=== PATIENT | female | born 1995 | race Caucasian/White ===

== ENCOUNTER 2022-08-05 09:08 | Outpatient (RCR) | payer BC, SELFPAY ==
[2022-08-06] MEDS: RHO(D) IMMUNE GLOBULIN 300 MCG/2 ML SYRINGE IM (17:41)
== END 2022-11-03 23:59 | disposition home or self-care (01) ==
LOC: ANHLAB 09:08
PROVIDERS: PCP Family Medicine; Visit Provider Obstetrics & Gynecology
DX: Z29.13 Encounter for prophylactic Rho(D) immune globulin (principal); O36.0190 Maternal care for anti-D [Rh] antibodies, unspecified trimester, not applicable or unspecified; Z3A.00 Weeks of gestation of pregnancy not specified
CPT/HCPCS: 36415; 85461; 86850; 86900; 86901; 90384; 96372; J2790

== ENCOUNTER 2022-10-17 07:26 | Inpatient (IN) | payer BC, SELFPAY ==
[2022-10-17] VITALS (179 sets, daily range): BP systolic 101–142; BP diastolic 55–90; PULSE 58–129; TEMP 36.6–36.9; O2SAT 83–100; BMI 32.8
--- NOTE | 2022-10-17 11:38 | LDADM ---
This patient, Vanita Tesfaye, was admitted to Labor/Delivery/Recovery 107 on 10/17/22 at 07:26. Plans for labor, pain management and were discussed with patient. Patient/family oriented to hospital policies and general routines including ID bracelet, bed and alarms, visiting hours, pain management, procedures, bathroom and other care routines, personal items, smoking policy, room service/diet and guest tray routines, security routines, and visiting hours. Patient/Family are encouraged to report perceived risks to care and to ask questions if they do not understand what they are told or what they should do. See OBIX for further documentation.
[2022-10-17 11:42] LABS: Basophils Percent Auto 0.3 % (0.2-1.2); Eosinophils Percent Auto 0.1 % (0-4.4); Hematocrit 37.8 % (37.0-47.0); Hemoglobin 12.6 g/dL (12.0-15.0); Immature Granulocyte Absolute 0.05 K/mm3 (0.00-0.031); Immature Granulocyte Percent A 0.4 % (0-0.5); Immature Platelet Fraction Pct 27.7 % (0.9-11.2); Lymphocytes Absolute Auto 1.17 K/mm3 (0.9-3.2); Lymphocytes Percent Auto 9.1 % (18.3-44.2); Mean Corpuscular HGB Conc 33.3 g/dl (32-36); Mean Corpuscular Hemoglobin 31.3 pg (26-34); Monocytes Absolute Auto 0.6 K/mm3 (0.1-0.6); Monocytes Percent Auto 4.4 % (2.6-8.5); Neutrophils Percent Auto 85.7 % (45.5-73.1); Platelet Count Result 120 k/mm3 (150-375); Red Blood Count 4.02 M/mm3 (4.2-5.4); White Blood Count 12.8 K/mm3 (4.5-10.0)
--- NOTE | 2022-10-17 12:08 | WPDOBADMIT ---
Obstetrics - Admit Note Admission Note: record reviewed. Additions to the history and/or subsequent changes in the physical findings follow. 27 y/o at 39 4/7 weeks here with contractions. Cervix has changed from 3 to 4 cm, labor has been diagnosed. GBS neg. AVSS NST reactove TOCO: contractions every 3- 4 min ABD soft nontender, gravid, vertex EXT nontender Cervix 4/50/-2. AROM with clear fluid. Vertex. A: IUP at term with labor. P: Anticipate .
--- NOTE | 2022-10-17 12:12 | WPDANESEPP ---
Anes - Eval Pre Procedure Procedure: labor pain management Date/Time: 10/17/22 12:12 Surgeon: Dr. Kelsey Preop Diagnosis: pain during labor Pre Op Diagnosis: contractions Patient Data Age: 27 Gender: F Height: 1.6 m Weight: 84 kg Last Vital Signs Pulse 79 10/17/22 11:31 BP 118/76 10/17/22 11:31 O2 Del Method Room Air 10/17/22 11:38 Allergies Allergy/AdvReac Type Severity Reaction Status Date / Time No Known Allergies Allergy Verified 09/20/22 12:32 Home Medications Medication Instructions Recorded Confirmed Type Flonase 1 puff EACH NARE DAILY 09/20/22 09/20/22 History loratadine 10 mg tablet (Claritin) 10 mg PO DAILY 09/20/22 09/20/22 History vits no.126-ferrous fum 1 tablet PO DAILY 09/20/22 09/20/22 History 28 mg iron-folic acid 800 mcg tablet (Classic ) Laboratory Tests 10/17/22 11:33 WBC 12.8 H K/mm3 (4.5-10.0) RBC 4.02 L M/mm3 (4.2-5.4) Hgb 12.6 g/dL (12.0-15.0) Hct 37.8 % (37.0-47.0) MCV 94.0 fl (80-100) MCH 31.3 pg (26-34) MCHC 33.3 g/dl (32-36) RDW 13.0 % (11.5-14.5) Plt Count 120 L k/mm3 (150-375) MPV TNP Immature Gran % (Auto) 0.4 % (0-0.5) Neut % (Auto) 85.7 H % (45.5-73.1) Lymph % (Auto) 9.1 L % (18.3-44.2) [place] % (Auto) 4.4 % (2.6-8.5) Eos % (Auto) 0.1 % (0-4.4) Baso % (Auto) 0.3 % (0.2-1.2) Lymph # (Auto) 1.17 K/mm3 (0.9-3.2) [place] # (Auto) 0.6 K/mm3 (0.1-0.6) Eos # (Auto) 0.0 K/mm3 (0-0.3) Baso # (Auto) 0.0 K/mm3 (0.0-0.1) Abs Immat Gran (auto) 0.05 H K/mm3 (0.00-0.031) Absolute Neuts (auto) 11.0 H K/mm3 (1.3-6.7) Absolute Nucleated RBC 0.0 K/mm3 (0.0-0.012) Nucleated RBC % 0.0 % (0.0-0.2) % Immature Plt Fraction 27.7 H % (0.9-11.2) RPR Pending Patient hx anesthesia problems: none Family hx anesthesia problems: none Results Review: All pre-operative results and documents have been reviewed as part of the pre-operative evaluation. [facility] Family History Family History (Updated 09/20/22 @ 12:47 by Karen Morris RN) Mother Brain tumor Hypertension Sibling Diabetes mellitus Sibling Adilson syndrome Father Hypertension Social History Social History Smoking status: Never smoker Second hand tobacco smoke exposure: No Substance use: never Lack of Transportation: No Lack of Food: Never True Current Housing: I Have Housing Concerned About Future Housing: No Difficulty Paying Gas/Electric Bills: No Difficulty Paying for Meds: No Currently Unemployed: No Education: Master's Degree or Higher Difficulty w/ Childcare or Family Care: No Spiritual care concerns: No Exam Day of Procedure 10/17/22 12:12
[2022-10-17] MEDS: LACTATED RINGERS 1,000 ML 125 ML IV CONT ×3 (12:50→22:04)
--- NOTE | 2022-10-17 14:59 | PC.NURSE ---
1220 - Introductions were made and mother shared how she would like to feed her baby with exclusive . Encouraged mother to place infant [id number] until the first feeding if infant is stable and to wait on the weight to help reduce stress, regulate respirations, heart rate, blood sugar and improve success with latching by allowing infant time to explore parent's chest using instincts. Education was shared on how to protect her milk supply with latching infant and/or using hand expression to remove milk if doesn't latch in the first hour, then finger feed colostrum to the infant to preserve breast focus. Demonstration given on how to hand express using tool. We discussed mothers questions and concerns. Resources provided with educational trifold for bonding and feeding . Mother voiced understanding of information, planning to meet again on the PP floor after delivery and to call if there is a request for assistance.
[2022-10-17] MEDS: OXYTOCIN 30 UNITS/NS 500 ML 30 UNITS/500 ML BAG IV CONT (17:30)
[2022-10-17] MEDS: fentaNYL CITRATE INJ (*CRX) 100 MCG/2 ML VIAL 50 MCG IV PUSH (18:55)
--- NOTE | 2022-10-17 23:27 | PM.OBPRVD ---
OB - Delivery Note Procedure Delivery date: 10/17/22 Procedure: Induction method: None Delivery augmentation: Rupture of Membranes and Pitocin Delivery monitor: External FHT, External Uterine and Internal Uterine Route of delivery: Laceration Description: Perineal - 2nd Degree Delivery repair: vicryl (3-0) Specimen: Yes (cord blood) Quantitative Blood Loss (ml): 95 Anesthesia type: Epidural Disposition: PACU Complications: None Narrative: 27 y/o at 39 4/7 weeks gestation who presented to the hospital with contractions. Labor was diagnosed. Amniotomy was performed with return of clear fluid. She received an epidural for pain control. Labor was subsequently augmented with oxytocin. Her labor progressed and her cervix dilated completely. She pushed with good effort and delivered the 's head to the perineum. A loose nuchal cord was splinted and the body delivered. The cord was reduced and the nose and mouth were bulb suctioned. After a delay, the cord was clamped and cut. The infant was handed off the field. Cord blood was collected. The placenta delivered spontaneously and was grossly normal in appearance. The usual 3 vessel cord was noted. A second degree midline perineal laceration was sustained. This was reapproximated using 3 0 Vicryl in the usual layered fashion. Excellent hemostasis resulted as did excellent reapproximation of the normal anatomy. Needle and instrument counts were correct. The patient was taken to recovery room in stable condition. The went to the nursery in stable condition. I was present and scrubbed for the entire delivery. [place] Baby Date of : 10/17/22 Time of : 22:59 Weeks of gestation at delivery: 39 gender: Male presentation: vertex position: Left Occiput Anterior Placenta delivery description: Spontaneous and Normal Configuration Cord Vessel Description: 3 Vessels, Nuchal Cord and Delayed Cord Clamping score one minute: 8 score five minutes: 9
--- NOTE | 2022-10-17 23:29 | P.DS_ITS ---
DS: Admitting Diagnosis Discharge Date 10/19/22 Admitting Diagnosis IUP at 39 4/7 weeks Labor DS: Discharge Diagnosis Discharge Diagnosis (1) (normal spontaneous vaginal delivery): Code(s): O80 - Encounter for full-term uncomplicated delivery Status: Acute OB - DS: Summary OB Procedures : None OB Procedures Intrapartum: Spontaneous Vag Delivery OB Procedures: : None Time Spent with Patient Time attestation: Total time spent providing and/or coordinating discharge services: DS: Data Data Completed and Pending Labs on day of discharge: Labs from last 24 hours 10/17/22 11:33 WBC 12.8 H RBC 4.02 L Hgb 12.6 Hct 37.8 MCV 94.0 MCH 31.3 MCHC 33.3 RDW 13.0 Plt Count 120 L MPV TNP Immature Gran % (Auto) 0.4 Neut % (Auto) 85.7 H Lymph % (Auto) 9.1 L [place] % (Auto) 4.4 Eos % (Auto) 0.1 Baso % (Auto) 0.3 Lymph # (Auto) 1.17 [place] # (Auto) 0.6 Eos # (Auto) 0.0 Baso # (Auto) 0.0 Abs Immat Gran (auto) 0.05 H Absolute Neuts (auto) 11.0 H Absolute Nucleated RBC 0.0 Nucleated RBC % 0.0 % Immature Plt Fraction 27.7 H RPR Pending Blood Type O Negative Antibody Screen Positive Antibody Identification Passive Due to RH Imm Glob Antigen Identification Cancelled DENIA, IgG Interpret Not Performed DENIA, Poly Interpret Negative DENIA, Complement Interp Not Performed Discharge Plan Discharge Attending physician on discharge: Tyree Kelsey Discharging Clinician: Tyree Kelsey Patient Disposition: Home, Self-Care Activity: pelvic rest Diet: regular Discharge Instructions: Call or return if temperature above 100.4? F, increased abdominal pain, increased vaginal bleeding or any new problems. Stand Alone Forms: General Discharge Information Follow-up/Referrals: Tyree Kelsey MD [Physician] - 6 Weeks Discharge Medications: New ibuprofen 600 mg tablet 600 mg PO Q6H PRN (Reason: cramps) Qty: 30 0RF Continued loratadine [Claritin] 10 mg Tablet 10 mg PO DAILY Classic 28 mg iron- 800 mcg Tablet 1 tablet PO DAILY Flonase 1 puff EACH NARE DAILY Date of admission: 10/17/22 07:26 Primary Care Provider: Letty,Stephanie Rodriguez Admitting Provider: Tyree Kelsey Attending physician on admission: Tyree Kelsey Condition: Stable
[2022-10-17] MEDS: OXYTOCIN 30 UNITS/NS 500 ML 30 UNITS/500 ML BAG 125 UNITS IV CONT (23:36)
[2022-10-18] VITALS (11 sets, daily range): BP systolic 98–128; BP diastolic 48–89; PULSE 76–118; RESP 16–18; TEMP 36.4–37.4; O2SAT 96–98
[2022-10-18] MEDS: IBUPROFEN 600 MG TABLET PO ×3 (05:45→22:15)
[2022-10-18 05:52] LABS: Hematocrit 38.6 % (37.0-47.0); Hemoglobin 12.9 g/dL (12.0-15.0)
--- NOTE | 2022-10-18 06:00 | OBPPTRN ---
Addendum entered by Jodi Daniel RN 10/18/22 06:03: original note time should have been 10/18/22 5513 Original Note: Patient transferred to post room #277 via wheelchair. Support person present. Oriented to unit, room, information board, rooming in, admission packet and security measures. Patient verbalizes understanding.
--- NOTE | 2022-10-18 08:21 | WPDANLDPN2 ---
Anes-Prog Note L&D Date/Time: 10/18/22 08:21 Neuro status: Neuro function grossly intact. Vital Signs: Last Vital Signs Temp 36.7 C 10/18/22 03:33 Pulse 92 10/18/22 03:33 Resp 16 10/18/22 03:33 BP 104/61 10/18/22 03:33 Pulse Ox 97 10/18/22 03:33 O2 Del Method Room Air 10/17/22 11:38 Pain score (VAS): 0 I/O: Intake & Output 10/17/22 10/18/22 10/18/22 23:59 07:59 15:59 Intake Total 1500 Output Total 95 Balance 1405 Patient feedback: Patient satisfied with anesthetic care.
[2022-10-18] MEDS: MULTIVIT/MIN/PREN/FOL AC/IRON TABLET 1 TAB PO (09:40)
[2022-10-18] MEDS: WITCH HAZEL 40 PADS 1 PAD TOPICAL (09:40)
[2022-10-18] MEDS: BENZOCAINE 20% AER SPR (*SP) 56 GM CAN 1 SPRAY TOPICAL (09:41)
[2022-10-18] MEDS: DOCUSATE SODIUM 100 MG CAPSULE PO (09:50)
--- NOTE | 2022-10-18 13:16 | PC.NURSE ---
[id number] Consulted with patient to assess needs related to . Mother led conversation with her experience with feeding baby so far. Mother works well with her infant with encouragement. Reviewed working with , supporting breast and how to protect the nipples with an optimal deep latch, good positioning, and good hand washing. Encouraged understanding the benefits of skin to skin, responding to feeding cues, frequencies of feeding 8-12 times in 24 hours (approximately 2-3 hours), duration of feedings, milk production, intake/output feeding sheet and signs of adequate intake encouraging swallowing at the breast. Reviewed positioning and alignment, supporting breast, off-centered (asymmetrical latch) and leading with the chin with big, open, wide gape. Infant attempts to latch shallow, sucking on the nipple in the front of her mouth or hickey sucking. After working with the to encourage a deeper latch by removing infant and not allowing the ineffective latch, then the infant latched optimally to the right breast in football position with rare if any swallowing visualized. Infant was detached after 10 minutes, placed upright skin to skin, stimulated for wakefulness and burping. After feeding cues were visualized we reviewed good positioning, waited for the big, wide, open gape, then latched infant to the left breast using football positioning. Education given to mother of how to visualize suck/swallow ratios and listen for drinking at the breast that the infant was demonstrating. Infant was able to maintain latch without discomfort to mother. Father of baby was given task of how to support mom and baby along with recognizing his infant swallowing at the breast. Nipple care reviewed with optimal latch, good positioning and using clean hands when feeding her and touching her breast. Resources used to facilitate learning were used from the visual handout, tool, mom and baby guide. Parents voiced understanding of the education shared, to call for assistance if the infant does not latch or if there is discomfort with . Reported to the primary RN.
[2022-10-18 14:18] LABS: Rapid Plasma Reagin Non-Reactive (NonReactive)
--- NOTE | 2022-10-18 15:50 | PC.NURSE ---
[id number] Call for a consult related to unable to get awake. Reviewed and demonstrated stimulating, burping with massage touch to encourage wakefulness to breastfeed. Infant burped, placed hari-cf-[id number] and once feeding cues were visualized was brought to mothers left breast in football positioning. Reviewed with mother of how to visualize suck/swallow ratios and listen for drinking at the breast that was demonstrating. was able to maintain latch without discomfort to mother. Nipple care reviewed with optimal latch and good positioning. Reviewed good handwashing when or touching the breast/nipples to prevent infection. Mother voiced understanding of skin to skin, stimulating with massage touch, responsive feedings, hand expressed colostrum, talking to infant to encourage if it has been 2 -2.5 hours since the start of the last , breastfeed on demand and oftern, to call if does not latch, or if there is discomfort with . Resources provided for inpatient/outpatient with feeding sheet and the mom/baby guide. Parents voiced understanding of information, demonstrated learning and will call if there is a request for assistance.
--- NOTE | 2022-10-18 16:09 | P.PNOB_ITS ---
OB - PN: Subj Subjective Date/time seen: 10/18/22 1130 Narrative: Pain OK. Would like circumcision for son. OB - PN: Obj Data Labs 10/18/22 05:30 Labs: Laboratory Results - last 24 hr 10/17/22 10/18/22 11:33 05:30 Hgb 12.9 Hct 38.6 RPR Non-reactive OB - PN A/P Plan Comments: A: PPD#1, doing well. P: Reviewed circ. Routine care. Exam 2 Psych: Other: AVSS ABD soft, nontender, fundus firm EXT nontender
[2022-10-19] MEDS: IBUPROFEN 600 MG TABLET PO (04:52)
[2022-10-19 08:30] VITALS: BP 94/56; PULSE 65; RESP 18; TEMP 36.9; O2SAT 99
[2022-10-19] MEDS: MULTIVIT/MIN/PREN/FOL AC/IRON TABLET 1 TAB PO (08:39)
--- NOTE | 2022-10-19 09:14 | PM.OBPNVD ---
OB - PN: Subj Subjective Date/time seen: 10/19/22 09:14 Narrative: Pain OK. Would like to go home. OB - PN: Obj Data Labs 10/18/22 05:30 Labs: Laboratory Results - last 24 hr 10/17/22 11:33 RPR Non-reactive OB - PN A/P Plan Comments: A: PPD#2, doing well. P: Home to f/u 6 weeks. Exam Psych: Other: AVSS ABD soft, nontender, fundus firm EXT nontender
--- NOTE | 2022-10-19 11:10 | PC.NURSE ---
Patient viewed the discharge video Mother & Baby Care, The First Two Weeks . Patient was given the opportunity and encouraged to ask questions. Patient verbalized understanding of information shared and has been given the mother/baby guide for home reference.
[2022-10-21 11:25] VITALS: BP 112/69; PULSE 73; RESP 18; TEMP 36.8; O2SAT 98
== END 2022-10-19 13:20 | disposition home or self-care (01) | DRG 807 ==
LOC: ANHLDR 23:30 → ANHOB2 10-18 04:34
PROVIDERS: Admitting Provider Obstetrics & Gynecology; PCP Family Medicine; Visit Provider Obstetrics & Gynecology
DX: O69.81X0 Labor and delivery complicated by cord around neck, without compression, not applicable or unspecified (principal); Z37.0 Single live birth; Z3A.39 39 weeks gestation of pregnancy; O70.1 Second degree perineal laceration during delivery
CPT/HCPCS: 36415; 85014; 85018; 85025; 85055; 86592; 86850; 86880; 86900; 86901; 86902; A9270; J2590; J2795; J3010; J7120

== ENCOUNTER 2022-11-15 12:36 | Outpatient (RCR) | payer BC, SELFPAY ==
--- NOTE | 2022-11-15 14:04 | PC.NURSE ---
In- 1240 Out- 1340 Reason for visit: Latch issues History: Mother's labor was augmented and mother breastfed while inpatient. There were shallow latches at times and mother demonstrated the education to latch deeply. One week after the delivery was tested for galactosemia which was confirmed negative. After infant fed with soy formula using a bottle mother desires to work on effective . Observations: Mother works well with her infant bringing tummy to mummy, however is a bit delicate with positioning her and not close to her body. Mother was encouraged to support herself in a comfortable position, support her breast with the U-hold for cross cradle positioning bringing infants chin to the gland first, then latching deeply. We practiced on both breast and mother had no pain. weight: 7-12.5 Lowest weight: 7-6.4 Last weight: 7-8 at the one week appt. mother states. Pre-feed weight: 4175g (9-3.2) Post-feed weight: 4299g Plan of Care: Mother plans to exclusively breastfeed and may occasionally pump to allow others to bottle feed infant. We reviewed preventing infection, when and how to call for assistance or for medical needs. Follow up plans: Mother will contact the ICP or the LC with further questions or difficulties.
== END 2023-02-13 23:59 | disposition home or self-care (01) ==
LOC: ANHOBOP 12:36
PROVIDERS: PCP Family Medicine; Visit Provider Obstetrics & Gynecology
DX: O92.79 Other disorders of lactation (principal)
CPT/HCPCS: 99212; G0463

== ENCOUNTER 2024-09-24 15:12 | Outpatient (RCR) | payer BC, SELFPAY ==
--- OUTSIDE RECORDS SUMMARY | 2024-09-22 12:20 | XMS_ITS | Clinical Summary ---
Author Organization [facility] Address [address] [place] [address] Care Team Providers Care Rejected Items Clerk Name Role Phone Stephanie Saenz MD Primary Care Provider [phone] Source Comments [facility],non-owned Affiliates and Associated Physician Practices is amultiple site organization consisting of ambulatory clinics and hospital sitesin [place], [place], [place] and [place]. This disclosure is being madepursuant to the Care Everywhere program and may not contain all information available regarding this patient. Last updated 17.[facility] Allergies Active Allergy Reactions Criticality Noted Date Comments Cefaclor Other Low 08/05/2014 Unknown, patient was instructed not to take medication from parent. Not sure of reaction. Medications * Be aware that medications may not be up to date on this document. Alwaysverify current medications with the patient. No known medications Family History Medical History Relation Name Comments None Known Father Status: Alive None Known Maternal Grandfather Status: Alive None Known Maternal Grandmother Status: Alive None Known Mother Status: Alive None Known Paternal Grandfather Status: None Known Paternal Grandmother Status: Relation Name Status Comments Father Maternal Grandfather Maternal Grandmother Mother Paternal Grandfather Paternal Grandmother Social History Tobacco Use Types Packs/Day Years Used Date Smoking Tobacco: Never Smokeless Tobacco: Never Alcohol Use Standard Drinks/Week Comments No 0 (1 standard drink = 0.6 oz pur e alcohol) Comments Unknown Sex and Gender Information Value Date Recorded Sex Assigned at Not on file Legal Sex Female 5:37 PM TRANSPORT ASSISTANT Gender Identity Not on file Sexual Orientation Not on file Last Filed Vital Signs Vital Sign Reading Time Taken Comments Blood Pressure 118/70 04/24/2015 1:06 PM TRANSPORT ASSISTANT Pulse 97 04/24/2015 1:06 PM TRANSPORT ASSISTANT Temperature 35.3 C (95.6 F) 04/24/2015 1:06 PM TRANSPORT ASSISTANT Respiratory Rate 12 04/24/2015 1:06 PM TRANSPORT ASSISTANT Oxygen Saturation 98% 04/24/2015 1:06 PM TRANSPORT ASSISTANT Inhaled Oxygen Concentration - - Weight 62.4 kg (137 lb 9.6 oz) 04/24/2015 1:06 P M TRANSPORT ASSISTANT Height 160 cm (5' 3) 04/24/2015 1:06 PM TRANSPORT ASSISTANT Body Mass Index 24.37 04/24/2015 1:06 PM TRANSPORT ASSISTANT Plan of Treatment Health Maintenance Due Date Last Done Comments HIV SCREENING 2009 HEPATITIS C SCREENING 05/29/2012 DTAP/TDAP/TD VACCINES (1 - Tdap) 2013 HEPATITIS B VACCINE (1 of 3 - 19+ 3-dose series) 2013 PAP SMEAR 06/04/2015 HPV VACCINE (1 - 3-dose SCDM series) 2021 COVID-19 VACCINE ( season) 2023 03/29/2020, 03/01/2020 DEPRESSION SCREENING 03/03/2024 INFLUENZA VACCINE (#1) 2024 , 12/19/2021, 11/28/2016, Additional history exists ZOSTER VACCINE (1 of 2) 2044 HIB VACCINE Aged Out No longer eligi ble based on patient's age to complete this topic MENINGOCOCCAL (Group B) VACCINE SHARED DECISION-MAKING Aged Out No longer eligible based on patient's age to complete this topic MENINGOCOCCAL GROUPS A/C/Y/W VACCINE Aged Out No longer eligible based on patient's age to complete this topic PNEUMOCOCCAL VACCINE Aged Out No long er eligible based on patient's age to complete this topic Insurance [employer] Care Teams Rejected Items Clerk Relationship Specialty Start Date End Date Stephanie Saenz MD [address] [id number] PCP - General 08/01/14
[2024-09-22 13:47] LABS: Hematocrit 37.8 % (37.0-47.0); Hemoglobin 12.4 g/dL (12.0-15.0); Mean Corpuscular HGB Conc 32.8 g/dl (32-36); Mean Corpuscular Hemoglobin 30.9 pg (26-34); Mean Corpuscular Volume 94.3 fl (80-100); Platelet Count Result 154 k/mm3 (150-375); Red Blood Count 4.01 M/mm3 (4.2-5.4); White Blood Count 8.4 K/mm3 (4.5-10.0)
[2024-09-22 14:07] LABS: Glucose 1 Hour PP 50gm Dose 134 mg/dL
[2024-09-22 14:34] LABS: Syphilis IgG/IgM Antibody Non-Reactive (Nonreactive)
[2024-09-22 14:47] LABS: HIV 1/2 Ab P24 Ag Result Negative (Negative)
[2024-09-24] MEDS: RHO(D) IMMUNE GLOBULIN 300 MCG/2 ML SYRINGE IM (15:38)
== END 2024-12-21 23:59 | disposition home or self-care (01) ==
LOC: ANHLAB 15:12
PROVIDERS: PCP Family Medicine; Visit Provider Nurse Practitioner Family
DX: Z11.4 Encounter for screening for human immunodeficiency virus [HIV] (principal); Z11.3 Encounter for screening for infections with a predominantly sexual mode of transmission; Z29.13 Encounter for prophylactic Rho(D) immune globulin; O36.0120 Maternal care for anti-D [Rh] antibodies, second trimester, not applicable or unspecified; Z3A.19 19 weeks gestation of pregnancy; O36.0130 Maternal care for anti-D [Rh] antibodies, third trimester, not applicable or unspecified; Z3A.35 35 weeks gestation of pregnancy; O48.0 Post-term pregnancy; Z3A.41 41 weeks gestation of pregnancy
CPT/HCPCS: 36415; 82947; 85027; 85461; 86593; 86703; 86850; 86900; 86901; 90384; 96372; G0432; J2790

== ENCOUNTER 2024-09-28 07:01 | Outpatient (CLI) | payer BC, SELFPAY ==
--- OUTSIDE RECORDS SUMMARY | 2024-09-28 07:03 | XMS_ITS | Data Portability ---
Author Organization [facility] Address [address] [place] [address] Care Team Providers Care Pai Gow Dealer Name Role Phone JAVON BALLARD Financial Institution Vice President Assessment No assessment recorded. Plan of Treatment Reminders Order Date Submit Date Provider Last Modified By Organization Details Last Modified Time Details Appointments None recorded. Lab pap, LB + reflex HPV mRNA E6/E7 2018 019 [employer] [facility], [address], [address], [place], [address], 9 10:58:57 culture, urine 2018 019 [employer] [facility], [address], [address], [place], [address], 9 16:55:48 urinalysis , dipstick 2018 019 [email or web address] In-Office Order, Internal Use Only DO Not Attach Compendium DO Not Attach Compendium, Do Not Delete/merge, [id number] 9 13:58:35 pap, IG + CT/NG/TV + reflex HPV (16+18) 2016 017 [facility], [address] [facility], [address], [place], [address], 7 20:09:44 Referral None recorded. Procedures None recorded. Surgeries None recorded. Imaging None recorded. Medication Orders fluticason e propionate 50 mcg/actuat ion nasal spray,susp ension 2018 019 INTERFACE [facility] [address], [address], 9 13:37:23 amoxicilli n 875 mg-potassi um clavulanat e 125 mg tablet 2018 019 [facility] [address], [address], 9 13:36:09 methylpred nisolone 4 mg tablets in a dose pack 2018 019 [facility] [address], [address], 9 13:36:05 Nortrel 7/7/7 (28) 0.5 mg/0.75 mg/1 mg-35 mcg tablet 2018 019 INTERFACE [facility] [address] In [facility], [address] [place], [address], 9 10:40:53 Sudafed 12 Hour 120 mg tablet,ext ended release 2017 018 [email or web address] Not available 8 11:09:51 Nortrel 7/7/7 (28) 0.5 mg/0.75 mg/1 mg-35 mcg tablet 2016 017 INTERFACE [facility], [address] [place], [address], 7 11:06:50 Patient TargetsNo targets recorded. Patient Instructions Encounter Date Encounter Id Patient Instructions Last Modified By Organization Details Last Modified Time 10/27/2017 [id number] allergies: care instructions Not available 10/27/2017 11:09:52 managing your allergies: care instructions Not available 10/27/2017 11:09:51 11/24/2018 [id number] allergies: care instructions Not available 11/24/2018 13:37:20 managing your allergies: care instructions Not available 11/24/2018 13:37:20 Acute Sinusitis: Care Instructions Not available 11/24/2018 13:35:59 Reason for Referral None Reported. Results Created Date Observation Date Name Description Value Unit Range Abnormal Flag Note LastModifiedBy Organization Detail LastModifiedTime 10/17/19 17 10/18/2016 pap, IG + CT/NG /TV + refle x HPV (16+1 8) diagnosis: HAM Cerda NEGAT SHANTI FOR INTRA EPITH ELIAL LESIO N AND SEAN BULLOCK . Not Available [facility] ([facility]) [address] [facility], [place], [address], 10/18/2016 20:09:44 10/17/19 17 10/18/2016 pap, IG + CT/NG /TV + refle x HPV (16+1 8) specimen adequacy: HAM Cerda SATIS FACTO RY FOR EVALU ATION . ENDOC ERVIC AL AND/O R SQUAM OUS METAP LASTI C CELLS (ENDO CERVI NAKITA COMPO NENT) ARE PRESE NT. Not Available [facility] ([facility]) [address] [facility], [place], [address], 10/18/2016 20:09:44 10/17/19 17 10/18/2016 pap, IG + CT/NG /TV + refle x HPV (16+1 8) clinician provided ICD10: HAM Cerda Z12.4 Not Available [facility] ([facility]) [address] [facility], [place], [address], 10/18/2016 20:09:44 10/17/19 17 10/18/2016 pap, IG + CT/NG /TV + refle x HPV (16+1 8) performed by: HAM SOTO CYTOZaida Cerda (ASCP ) Not Available [facility] ([facility]) [address] [place], [address], 10/18/2016 20:09:44 10/17/19 17 10/18/2016 pap, IG + CT/NG /TV + refle x HPV (16+1 8) . . Not Available [facility] ([facility]) [address] [place], [address], 10/18/2016 20:09:44 10/17/19 17 10/18/2016 pap, IG + CT/NG /TV + refle x HPV (16+1 8) note: COMMEN T THE PAP SMEAR IS A SCREE EDINSON TEST DESIG MAGED TO AID IN THE DETEC TION OF CHANTE LIGNA NT AND MALIG NANT CONDI TIONS OF THE UTERI NE CERVI X. IT IS NOT A DIAGN OSTIC PROCE DURE AND SHOUL D NOT BE USED THE SOLE MEANS OF DETEC TING CERVI NAKITA CANCE R. BOTH FALSE -POSI TIVE AND FALSE -NEGA TIVE REPOR TS DO OCCUR . Not Available [facility] ([facility]) [address] [facility], [place], [address], 10/18/2016 20:09:44 10/17/19 17 10/18/2016 pap, IG + CT/NG /TV + refle x HPV (16+1 8) test methodology: HAM T THIS LIQUI D BASED THINP REP(R ) PAP TEST WAS SCREE MAGED WITH THE USE OF AN IMAGE GUIDE [employer]. Not Available [facility] ([facility]) [address] [place], [address], 10/18/2016 20:09:44 10/17/19 17 10/18/2016 pap, IG + CT/NG /TV + refle x HPV (16+1 8) HPV, high-risk NEGATI VE negati ve THIS HIGH- RISK HPV TEST DETEC TS THIRT EEN HIGH- RISK TYPES (16/1 8/31/ 33/35 /39/4 5/51/ 52/56 /58/5 ) WITHO UT DIFFE RENTI ATION . Not Available [facility] ([facility]) [address] [facility], [place], [address], 10/18/2016 20:09:44 10/17/19 17 10/18/2016 pap, IG + CT/NG /TV + refle x HPV (16+1 8) chlamydia, nuc. acid amp NEGATI VE negati ve Not Available [facility] ([facility]) [address] [place], [address], 10/18/2016 20:09:44 10/17/19 17 10/18/2016 pap, IG + CT/NG /TV + refle x HPV (16+1 8) gonococcus, nuc. acid amp NEGATI VE negati ve Not Available [facility] ([facility]) [address] [place], [address], 10/18/2016 20:09:44 10/17/19 17 10/18/2016 pap, IG + CT/NG /TV + refle x HPV (16+1 8) trich vag by DAVE NEGATI VE negati ve Not Available [facility] ([facility]) [address] [facility], [place], [address], 10/18/2016 20:09:44 08/14/19 19 08/15/2018 cultu re, urine culture, urine, routine SEE NOTE abnormal CULTU RE, URINE , ROUTI NE MICRO NUMBE R: [id number] TEST STATU S: FINAL SPECI MEN SOURC E: VOID SPECI MEN QUALI TY: ADEQU ATE RESUL T: Great er than 100,0 00 CFU/m L of Enter obact er cloac ae compl ex E. cloac ae ----- ----- ----- - INT KAIT AMOX/ CLAVU LANAT E R >=32 CEFAZ ADDY R >=64 1 CEFEP TRUDY S <=1 CEFTR IAXON E S <=1 CIPRO FLOXA ESTEPHANIA S <=0.2 5 ERTAP ENEM S <=0.5 GENTA MICIN S <=1 IMIPE NEM S 1 LEVOF LOXAC IN S <=0.1 2 NITRO FURAN TOIN I 64 TOBRA MYCIN S <=1 TRIME THOPR IM/CARMONA LFA S <=20 S=Alexia cepti ble I=Int ermed iate R=Res istan t * = Not Teste d NR = Not Repor mahamed NN = See Thera py Comme nts THERA PY COMME NTS Note 1: For uncom plica mahamed UTI cause d by E. coli, K. pneum oniae or P. mirab ilis: Cefaz addy is susce ptibl e if KAIT <32 mcg/m L and predi cts susce ptibl e to the oral agent s cefac soraya, cefdi jonathan, cefpo doxim e, cefpr ozil, cefur oxime , cepha lexin and lorac arbef . Not Available [facility] [address] [place], [address], 08/15/2018 12:18:33 08/14/1908/13/2018 urina lysis , dipst ick Leukocytes Modera te Not Available In-Office Order Internal Use Only DO Not Attach Compendium DO Not Attach Compendium, Do Not Delete/merge, 08/13/2018 11:03:22 08/14/1908/13/2018 urina lysis , dipst ick Nitrite negati ve Not Available In-Office Order Internal Use Only DO Not Attach Compendium DO Not Attach Compendium, Do Not Delete/merge, 08/13/2018 11:03:22 08/14/1908/13/2018 urina lysis , dipst ick Urobilinogen .2 Not Available In-Of fice Order Internal Use Only DO Not Attach Compendium DO Not Attach Compendium, Do Not Delete/merge, 08/13/2018 11:03:22 08/14/1908/13/2018 urina lysis , dipst ick Protein Negati ve Not Available In-Office Order Internal Use Only DO Not Attach Compendium DO Not Attach Compendium, Do Not Delete/merge, 08/13/2018 11:03:22 08/14/1908/13/2018 urina lysis , dipst ick pH 8.0 Not Available In-Office Order Internal Use Only DO Not Attach Compendium DO Not Attach Compendium, Do Not Delete/merge, 08/13/2018 11:03:22 08/14/1908/13/2018 urina lysis , dipst ick Blood Large Not Available In-Office Order Internal Use Only DO Not Attach Compendium DO Not Attach Compendium, Do Not Delete/merge, [facility] 08/13/2018 11:03:22 08/14/19 19 08/13/2018 urina lysis , dipst ick Specific [place] 1.010 Not Available In-Off ice Order Internal Use Only DO Not Attach Compendium DO Not Attach Compendium, Do Not Delete/merge, [facility] 08/13/2018 11:03:22 08/14/19 19 08/13/2018 urina lysis , dipst ick Ketone Trace Not Available In-Office Order Internal Use Only DO Not Attach Compendium DO Not Attach Compendium, Do Not Delete/merge, [facility] 08/13/2018 11:03:22 08/14/19 19 08/13/2018 urina lysis , dipst ick Bilirubin Negati ve Not Available In-Office Order Internal Use Only DO Not Attach Compendium DO Not Attach Compendium, Do Not Delete/merge, [facility] 08/13/2018 11:03:22 08/14/19 19 08/13/2018 urina lysis , dipst ick Glucose Negati ve Not Available In-Office Order Internal Use Only DO Not Attach Compendium DO Not Attach Compendium, Do Not Delete/merge, [facility] 08/13/2018 11:03:22 08/14/19 19 08/13/2018 urina lysis , dipst ick Appearance Clear Not Available In-Offi ce Order Internal Use Only DO Not Attach Compendium DO Not Attach Compendium, Do Not Delete/merge, [facility] 08/13/2018 11:03:22 08/14/19 19 08/13/2018 urina lysis , dipst ick Color Pale Yellow Not Available In-Office Order Internal Use Only DO Not Attach Compendium DO Not Attach Compendium, Do Not Delete/merge, [facility] 08/13/2018 11:03:22 10/17/19 19 10/21/2018 pap, LB + refle x HPV mRNA E6/E7 clinical information: normal Infor matio n not provi ded Not Available [email or web address] [address] [address] [place], [address], 10/21/2018 10:58:57 10/17/19 19 10/21/2018 pap, LB + refle x HPV mRNA E6/E7 LMP: normal INFOR MATIO N NOT PROVI DED Not Available [facility] [address] [address] [place], [address], 10/21/2018 10:58:57 10/17/19 19 10/21/2018 pap, LB + refle x HPV mRNA E6/E7 prev. Pap: normal INFOR MATIO N NOT PROVI DED Not Available [address] [place], [address], 10/21/2018 10:58:57 10/17/19 19 10/21/2018 pap, LB + refle x HPV mRNA E6/E7 prev. BX: normal INFOR MATIO N NOT PROVI DED Not Available [address], [address], 10/21/2018 10:58:57 10/17/1910/21/2018 pap, LB + refle x HPV mRNA E6/E7 source: normal Infor matio n not provi ded Not Available [address] [place], [address], 10/21/2018 10:58:57 10/17/19 19 10/21/2018 pap, LB + refle x HPV mRNA E6/E7 statement of adequacy: normal Satis facto ry for evalu ation . Endoc ervic al/tr ansfo rmati on zone compo nent prese nt. Age and/o r menst rual statu s not provi ded Not Available [address], [address], 10/21/2018 10:58:57 10/17/19 19 10/21/2018 pap, LB + refle x HPV mRNA E6/E7 interpretati on/result: normal Negat shanti for intra epith elial lesio n or malig osvaldo . Not Available [address], [place], [address], 10/21/2018 10:58:57 10/17/1910/21/2018 pap, LB + refle x HPV mRNA E6/E7 comment: normal This Pap test has been evalu ated with compu [employer] [employer] . Not Available [address], [place], [address], 10/21/2018 10:58:57 10/17/19 19 10/21/2018 pap, LB + refle x HPV mRNA E6/E7 cytotechnolo gist: normal AMW, CT( CP) CT scree edinson locat ion: [address] [place] [address] Not Available [facility] [address], [place], [address], 10/21/2018 10:58:57 10/17/19 19 10/21/2018 pap, LB + refle x HPV mRNA E6/E7 comment EXPLA NATOR Y NOTE: The Pap is a scree edinson test for cervi nakita cance r. It is not a diagn ostic test and is subje ct to false negat shanti and false posit shanti resul ts. It is most relia ble when a satis facto ry sampl e, regul young obtai maged, is submi tted with relev ant clini nakita findi ngs and histo ry, and when the Pap resul t is evalu ated along with histo blane and curre nt clini nakita infor matio n. Not Available [email or web address] [address], [place], [address], 10/21/2018 10:58:57 01/26/20 24 02/03/2024 Refer ral lab test panel test name GALT gene sequen cing and deleti on/dup licati on to Invita e Test Name GALT gene seque ncing and delet ion/d uplic ation to Invit ae 02/02 6:29 PM [facility] OTHER LAB Not Available Not Available 06/07/2024 12:40:28 01/26/20 24 02/03/2024 Refer ral lab test panel test result See Louise hook Report Test Resul t See Jenifer jimenez Repor t 02/02 6:29 PM [facility] OTHER LAB Not Available Not Available 06/07/2024 12:40:28 Result Notes None recorded. Problems Name Problem SNOMED Code Status Onset Date Resolution Date Notes Provider Name and Address Organization Details Recorded Time Dysmenorr hea 390924896 Completed 201108/11/2022 Jesse Griggs MD Attn: Aki muniz,[address] [facility], [place], [address], [place] [facility] 3 12:44:07 Oral contracep tive prescribe d Completed 201112/20/2011 Jesse Griggs MD Attn: Aki muniz,[address] [place] [address], [place], [address], [place] [facility] 3 12:44:53 Streptoco ccal sore throat 12896560 Completed 201102/14/2012 Jesse Griggs MD Attn: Aki g,[address] [place] [address], [place], [address], [place] [facility] 3 12:45:00 Acute maxillary sinusitis 75502840 Completed 201510/06/2015 Location : None;Sev erity: Moderate ;Progres s: Stable;A dded By: Stephanie Saenz;Add to Current Problems : YES Jesse Griggs MD Attn: Aki g,[address] [facility], [place], [address], [place] [facility] 3 12:44:02 Acute maxillary sinusitis 81851701 Completed 201508/11/2022 Jesse Griggs MD Attn: Aki g,[address] [facility], [place], [address], [place] [facility] 3 12:44:02 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 Procedures Surgical History Date Name Laterality Status Provider Name and Address Organization Details Recorded Time Eye Surgery completed Alyssia eZlaya MA [facility] 10/16/2016 10:45:41 Imaging Results None recorded. Procedure Notes None recorded. Medical Equipment None Reported. Allergies Allergen ID Allergen Name Allergen Category Reaction Reaction Severity Criticality Documentation Date Start Date Code Code System Note Provider Name and Address Organization Details Recorded Time [address] Ceclor medicatio n hives moderate Not available 03/06/2016201163 5 RxNorm React ion: hives ;Stefanie rity: Moder ate; Comme nt: Aller gy Type: Adver se React ion; Not Available [facility] 7 03:47:28 Medications Name Sig Start Date Stop Date Status Note LastModified by Organization Details LastModified Time azithromyc in 250 mg tablet Take 2 tabs on day 1, and 1 tab days 2-5 as directed w/food 10/16 completed Not Available Not Available Not Available amoxicilli n 875 mg tablet Take 1 tablet(s) by mouth q12h for 10 days 02/22 completed RxNorm : 213030 ;Allow Substi tution : True Not Available Not Available Not Available Cipro 500 mg tablet Take 1 tablet(s) by mouth q12h for 14 days 04/12 completed RxNorm : 000076 ;Allow Substi tution : True Not Available Not Available Not Available methylpred nisolone 4 mg tablets in a dose pack Take as directed with food 2018 active Not Available Not Available Not Avai lable fluticason e propionate 50 mcg/actuat ion nasal spray,susp ension [place] 2 sprays every day by intranasa l route. 2018 active Not Available Not Available Not Avai lable Sudafed 12 Hour 120 mg tablet,ext ended release Take 1 tablet(s) every 12 hours by oral route. active Not Available Not Available No t Available amoxicilli n 875 mg-potassi um clavulanat e 125 mg tablet Take 1 tablet every 12 hours by oral route. 2018 active Not Available Not Available Not Avai lable Bactrim DS 800 mg-160 mg tablet Take 1 tablet every 12 hours by oral route for 7 days. 10/16 completed Not Available Not Available Not Available Ortho Tri-Cyclen LO (28) 0.18 mg/0.215 mg/0.25 mg-25 mcg tablet Take 1 tablet(s) by mouth daily as directed. 10/04 completed Allow Substi tution : True Not Available Not Available Not Available Boostrix Tdap 2.5 Lf unit-8 mcg-5 Lf/0.5 mL intramuscu lar syringe 10/16 completed Not Available Not Available Not Available Pirmella 0.5/0.75/1 mg-35 mcg tablet TAKE 1 TABLET BY MOUTH ONCE DAILY DIRECTED active Not Available Not Available No t Available Vitals Date Recorded Body weight Body height Body mass index (BMI) Body temperature Oxygen saturation Oxygen saturation in Arterial blood by Pulse oximetry Heart rate Systolic And Diastolic Provider Name and Address Organization Details Last Updated DateTime 7 38100.6 4 g 160.02 cm 23.5 kg/m2 97.2 [degF] 98 % 98 % 69 /min 118/70 mm[Hg] Alyssia Zelaya [place] [facility] 7 10:45:01 Date Recorded Body height Body mass index (BMI) Body weight Body temperature Oxygen saturation Oxygen saturation in Arterial blood by Pulse oximetry Heart rate Systolic And Diastolic Provider Name and Address Organization Details Last Updated DateTime 9 160.02 cm 24.1 kg/m2 68880.3 1 g 97.6 [degF] 98 % 98 % 93 /min 118/76 mm[Hg] Jessy Flores [facility] 9 09:57:35 Date Recorded Body height Body mass index (BMI) Body weight Body temperature Oxygen saturation Oxygen saturation in Arterial blood by Pulse oximetry Heart rate Systolic And Diastolic Provider Name and Address Organization Details Last Updated DateTime 8 160.02 cm 24.4 kg/m2 58249.7 5 g 98.6 [degF] 97 % 97 % 77 /min 120/68 mm[Hg] Kang Mcrae MA [facility] 8 10:19:10 Date Recorded Body height Body mass index (BMI) Body weight Oxygen saturation Oxygen saturation in Arterial blood by Pulse oximetry Heart rate Body temperature Systolic And Diastolic Provider Name and Address Organization Details Last Updated DateTime 9 160.02 cm 24.6 kg/m2 01240.6 9 g 91 % 91 % 65 /min 99.3 [degF] 110/78 mm[Hg] Irma Monsivais MA [facility] 9 13:11:26 Social History Question Answer Notes LastModified by Organizat ion Details LastModified Time Tobacco Smoking Status Never Smoker Alyssia Zelaya MA [facility], [facility] 10/16/2016 10:45:58 What Was The Date Of Your Most Recent Tobacco Screening? 10/27/2017 Information n ot available 09/24/2018 Sex: Unknown Functional Status None recorded. Mental Status None recorded. Family History Relationship Description Onset Age of this Age Resolved Age Notes LastModified by Organization Details LastModified Time Paternal Grandmother Hypertensive disorder thoskinsma Not available 10/15 16:32:27 Paternal Grandmother Diabetes mellitus thoskinsma Not available 10/15 16:32:35 Maternal Grandmother Hypertensive disorder thoskinsma Not available 10/15 16:32:27 Medical History No medical history recorded. Gynecological History Statement/Question Response Menses Monthly Y Age at Menarche 10 Date of LMP 10/15/2017 Obstetrics History GPAL:G 0 P 0 0 0 0 Immunizations Vaccine Type Date Status Note Provider Nam e and Address Organization Details Recorded Time Influenza, MDCK, quadrivalent, PF 2 completed Chel Ba[place], [place] [facility] 12/20/2021 15:23:47 Tdap 3 completed [place] [facility] 10/28/2022 13:59:16 Influenza, MDCK, quadrivalent, PF 3 completed [place], [place] [facility] 01/09/2023 14:34:29 influenza, seasonal, intradermal, preservative free 3 completed Not Available [facility] 04/03/2019 02:11:41 Meningococcal MCV4O 3 completed Not Available [facility] 04/03/2019 02:11:41 Tdap 7 completed Not Available [facility] 03/06/2016 05:46:22 TST-PPD intradermal 3 completed Not Available [facility] 04/03/2019 02:11:41 Tdap 7 completed [place] [facility] 05/16/2016 11:10:01 Influenza, split virus, quadrivalent, preservative 7 completed Rich[place] Rkause [place], [place] [facility] 11/29/2016 11:01:35 Past Encounters Encounter ID Performer Location Encounter Start Date Encounter Closed Date Diagnosis/Indication Diagnosis SNOMED-CT Code Diagnosis ICD10 Code Diagnosis Note [id number] Stephanie Saenz MD [facility] [address] [place] [address] 10/16/2016 10:15:24 10/16/2016 14:36:37 Uses oral contraception 1797086 Z30.41 Screening for malignant neoplasm of cervix 313108741 Z12.4 Gynecologi c examination 37156324 Z01.682 [id number] Stephanie Saenz MD [facility] [address] [place] [address] 10/27/2017 09:54:53 10/28/2017 11:26:29 Uses oral contraception 0360542 Z30.41 Gynecologi c examination 38938373 Z01.419 Allergic rhinitis 352876 04 J30.1 [id number] Stephanie Saenz MD [facility] [address] [place] [address] 08/13/2018 10:45:52 08/13/2018 11:31:06 Increased frequency of urination 088844150 R35.0 [id number] Stephanie Saenz MD [facility] [address] [place] [address] 10/16/2018 09:45:21 10/16/2018 12:59:41 Uses oral contraception 5436035 Z30.41 Gynecologi c examination 91024723 Z01.783 [id number] Stephanie Saenz MD [facility] [address] [place] [address] 11/24/2018 12:21:20 11/24/2018 15:51:07 Acute maxillary sinusitis 30341182 J01.00 Allergic rhinitis 320850 04 J30.1 Health Concerns Section Related Observation LastModified by Organization Detai ls LastModified Time None Recorded Concern Status LastModified by Organization Details LastModified Time None Recorded Advance Directives Directive None Recorded Payers Insurance Date Sequence Insurance Name Policy Number Policy Alfredo Covered Member ID Alfredo Member ID Guarantor Name 10/27/2017 2 [facility] (PPO) [id number] Vanita Clarke [id number] Vanita R Tesfaye 11/24/2018 1 [facility] (PPO) [id number] Vanita R Tesfaye [id number] Vanita R Tesfaye 10/16/2018 1 [employer] (PPO) [id number] Vanita R Tesfaye [id number] Vanita R Tesfaye OBGyn Episode No OBEpisode recorded.
--- OUTSIDE RECORDS SUMMARY | 2024-09-28 07:03 | XMS_ITS | Clinical Summary ---
Author Organization [facility] Address [address] [place] [address] Care Team Providers Care Arborer Name Role Phone Stephanie Saenz MD Primary Care Provider [phone] [facility],non-owned Affiliates and Associated Physician Practices is amultiple site organization consisting of ambulatory clinics and hospital sitesin [place], [place], [place] and [place]. This disclosure is being madepursuant to the Care Everywhere program and may not contain all information available regarding this patient. Last updated 17.[facility] Allergies Active Allergy Reactions Criticality Noted Date [...] on file Legal Sex Female 5:37 PM UROLOGIC NURSE Gender Identity Not on file Sexual Orientation Not on file Last Filed Vital Signs Vital Sign Reading Time Taken Comments Blood Pressure 118/70 04/24/2015 1:06 PM UROLOGIC NURSE Pulse 97 04/24/2015 1:06 PM UROLOGIC NURSE Temperature 35.3 C (95.6 F) 04/24/2015 1:06 PM UROLOGIC NURSE Respiratory Rate 12 04/24/2015 1:06 PM UROLOGIC NURSE Oxygen Saturation 98% 04/24/2015 1:06 PM UROLOGIC NURSE Inhaled Oxygen Concentration - - Weight 62.4 kg (137 lb 9.6 oz) 04/24/2015 1:06 P M UROLOGIC NURSE Height 160 cm (5' 3) 04/24/2015 1:06 PM UROLOGIC NURSE Body Mass Index 24.37 04/24/2015 1:06 PM UROLOGIC NURSE Plan of Treatment Health Maintenance Due Date [...] complete this topic Insurance [employer] Care Teams Arborer Relationship Specialty Start Date End Date Stephanie Saenz MD [address] [id number] PCP - General 08/01/14
[2024-09-28 09:52] LABS: Glucose 1 Hour 172 mg/dL
[2024-09-28 10:46] LABS: Glucose 2 Hour 155 mg/dL
[2024-09-28 12:02] LABS: Glucose 3 Hour 140 mg/dL
== END 2024-09-28 07:02 | disposition home or self-care (01) ==
LOC: ANHLAB 07:01
PROVIDERS: PCP Family Medicine; Visit Provider Obstetrics & Gynecology
DX: Z34.90 Encounter for supervision of normal pregnancy, unspecified, unspecified trimester (principal)
CPT/HCPCS: 36415; 82951; 82952

== ENCOUNTER 2024-12-08 00:42 | Inpatient (IN) | payer BC, SELFPAY ==
[2024-12-08] VITALS (42 sets, daily range): BP systolic 85–134; BP diastolic 33–81; PULSE 69–91; RESP 16–20; TEMP 36.2–37.7; O2SAT 93–100; BMI 29.5
[2024-12-08 01:11] LABS: Hematocrit 38.0 % (37.0-47.0); Hemoglobin 12.9 g/dL (12.0-15.0); Immature Granulocyte Percent A 0.2 % (0-0.5); Immature Platelet Fraction Pct 12.0 % (0.9-11.2); Lymphocytes Absolute Auto 4.40 K/mm3 (0.9-3.2); Mean Corpuscular HGB Conc 33.9 g/dl (32-36); Mean Corpuscular Hemoglobin 31.2 pg (26-34); Mean Corpuscular Volume 92.0 fl (80-100); Nucleated Red Blood Cells Absolute Auto 0.000 K/mm3 (0.0-0.012); Nucleated Red Blood Cells Perc 0.0 % (0.0-0.2); Platelet Count Result 156 k/mm3 (150-375); Red Blood Count 4.13 M/mm3 (4.2-5.4); White Blood Count 14.5 K/mm3 (4.5-10.0)
--- NOTE | 2024-12-08 01:39 | LDADM ---
This patient, Vanita Tesfaye, was admitted to Labor/Delivery/Recovery 106 on 12/08/24 at 00:42. Plans for labor, pain management and were discussed with patient. Patient/family oriented to hospital policies and general routines including ID bracelet, bed and alarms, visiting hours, pain management, procedures, bathroom and other care routines, personal items, smoking policy, room service/diet and guest tray routines, security routines, and visiting hours. Patient/Family are encouraged to report perceived risks to care and to ask questions if they do not understand what they are told or what they should do. See OBIX for further documentation.
[2024-12-08 01:44] LABS: Syphilis IgG/IgM Antibody Non-Reactive (Nonreactive)
[2024-12-08] MEDS: OXYTOCIN 30 UNITS/NS 500 ML 30 UNITS/500 ML BAG 999 UNITS IV CONT (02:32)
[2024-12-08] MEDS: OXYTOCIN 30 UNITS/NS 500 ML 30 UNITS/500 ML BAG 125 UNITS IV CONT (02:32)
--- NOTE | 2024-12-08 02:49 | PM.IMHP ---
H&P: HPI History of Present Illness Date/Time: 12/08/24 02:49 Chief Complaint: contractions Narrative: She present to L and D with contractions and was anterior lip. She has SROM soon after arrival. Review of Systems Review of Systems: All systems reviewed & are unremarkable except as noted in HPI and below Constitutional: Constitutional: Reports no additional constitutional complaints and Denies headache(s) Eyes: Eyes: Denies spots in vision ENT: Reports system reviewed and no additional complaints, except as documented and Denies headache(s) Cardiovascular: Cardiovascular: Denies chest pain and Denies dyspnea Respiratory: Respiratory: Denies dyspnea Gastrointestinal: Gastrointestinal: Reports no additional gastrointestinal complaints Genitourinary: Genitourinary: Reports amenorrhea Musculoskeletal: Musculoskeletal: Reports no additional musculoskeletal complaints Integumentary/Breasts: Skin/Breast: Denies breast mass and Denies rash Neurologic: Denies headache(s) Psychiatric: Psychiatric: Reports no additional psychiatric complaints PMFSH Past Medical History Medical History 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 Chalazion Mastoiditis Melanoma Surgical History Surgical History H/O melanoma excision Family History Family History Mother Brain tumor Hypertension Sibling Diabetes mellitus Sibling Hartford syndrome Father Hypertension Social History Social History Smoking status: Never smoker Second hand tobacco smoke exposure: No Substance use: never Lack of Transportation: No Lack of Food: Never True Current Housing: I Have Housing Concerned About Future Housing: No Difficulty Paying Gas/Electric Bills: No Difficulty Paying for Meds: No Currently Unemployed: No Education: Master's Degree or Higher Difficulty w/ Childcare or Family Care: No Spiritual care concerns: No Meds Home Medications and Allergies Home Medications ?Medication ?Instructions ?Recorded ?Confirmed ?Type vits no.126-ferrous fum 1 tablet PO DAILY 09/20/22 12/07/24 History 28 mg iron-folic acid 800 mcg tablet (Classic ) omega 1-pxh-gha-fish oil 60 mg-90 1 cap PO DAILY 09/22/24 12/07/24 History mg-500 mg capsule (Fish Oil) Allergies Allergy/AdvReac Type Severity Reaction Status Date / Time No Known Allergies Allergy Verified 12/07/24 09:42 Vital Signs Vital Signs - 24 hr 12/08/24 01:02 12/08/24 01:07 12/08/24 01:12 Temperature Pulse Rate Blood Pressure Pulse Oximetry 97 95 96 12/08/24 01:17 12/08/24 01:21 12/08/24 01:26 Temperature Pulse Rate Blood Pressure Pulse Oximetry 98 96 100 12/08/24 01:31 12/08/24 01:36 12/08/24 01:41 Temperature Pulse Rate Blood Pressure Pulse Oximetry 100 99 95 12/08/24 01:45 12/08/24 01:45 12/08/24 01:46 Temperature 97.7 F 97.6 F Pulse Rate Blood Pressure Pulse Oximetry 96 12/08/24 01:51 12/08/24 01:56 12/08/24 02:00 Temperature Pulse Rate 85 Blood Pressure 134/33 L Pulse Oximetry 95 96 12/08/24 02:01 12/08/24 02:06 12/08/24 02:11 Temperature Pulse Rate Blood Pressure Pulse Oximetry 97 96 96 12/08/24 02:15 12/08/24 02:16 12/08/24 02:21 Temperature Pulse Rate 90 Blood Pressure 110/61 Pulse Oximetry 95 96 12/08/24 02:26 12/08/24 02:30 12/08/24 02:30 Temperature Pulse Rate Blood Pressure Pulse Oximetry 97 97 97 12/08/24 02:31 12/08/24 02:35 12/08/24 02:40 Temperature Pulse Rate 81 Blood Pressure 85/59 L Pulse Oximetry 95 95 12/08/24 02:45 Temperature Pulse Rate 88 Blood Pressure 103/52 L Pulse Oximetry 94 Exam Const: General: no acute distress Eyes: General: appearance normal, both eyes and all related structures Resp: Effort & Inspection: normal respiratory effort Cardio: Rate: regular rate GI: Other: Gravid no fundal tenderness no right upper quadrant pain Skin: General skin exam: no rashes or lesions noted Neuro: Cognition (Neuro): normal cognition Extrem: General: normal to inspection Psych: Mental Status: mental status grossly normal H&P: Results Labs Labs: Short CBC 10/08/25 Range/Units 01:01 WBC 14.5 H (4.5-10.0) K/mm3 Hgb 12.9 (12.0-15.0) g/dL Hct 38.0 (37.0-47.0) % Plt Count 156 (150-375) k/mm3 Assessment and Plan Assessment and plan (1) Active labor: Status: Acute Assessment and Plan: Admit. Anticipate vaginal delivery.
--- NOTE | 2024-12-08 02:50 | P.PCNOB_ITS ---
OB - Vaginal Delivery Note Procedure Delivery date: 12/08/24 Induction method: None Delivery monitor: External FHT Route of delivery: Episiotomy description: None Laceration Description: Perineal - 2nd Degree Delivery repair: vicryl (2.0 vicryl) Specimen: No Quantitative Blood Loss (ml): 200 Anesthesia type: Local Disposition: Floor Complications: No immediate complications Narrative: She Presented to labor and delivery with contractions and was noted to be anterior lip. She had spontaneous rupture of membranes soon after delivery. She dilated to complete and had a delivery of a female infant. The mouth were suction at the perineum with gentle traction anterior shoulders were delivered and the a rest the infant was delivered and was placed on the maternal abdomen vigorously crying delayed cord clamping until the cord was a pulsatile which was approximally 1 minute. Cord was then doubly clamped and cut. Cord blood and cord gases obtained. Pitocin started. Placenta delivered spontaneously and intact with trailing membranes. She was given local lidocaine and the second- degree perineal laceration was repaired with 2 0 Vicryl. Uterine tone normal. Patient tolerated procedure well. [place] Baby Date of : 12/08/24 Time of : 01:04 Gestational Age by Date: 39 gender: Female presentation: vertex position: Right Occiput Anterior Placenta delivery description: Spontaneous Cord Vessel Description: 3 Vessels and Clamped/Cut score one minute: 8 score five minutes: 8
[2024-12-08] MEDS: IBUPROFEN 600 MG TABLET PO ×2 (03:00→13:35)
--- NOTE | 2024-12-08 13:25 | PC.NURSE ---
1125 Mother verbalizes she is able to independently latch infant with appropriate positioning and alignment. She denies any nipple discomfort and is responsively . is currently meeting outcomes for weight, output, jaundice, blood sugar and feeding frequencies. Mother declines any additional assistance or education at this time. Mother is encouraged to call for assistance if her doesn?t latch, pain with latching, questions or concerns. Mother voiced understanding of information shared along with the mom/baby guide for an additional resource. Reported to the Primary RN. 1325 Mother called to have CLC assess her latch. We reviewed positioning and alignment, supporting breast, off-centered (asymmetrical latch) and leading with the chin with big, open, wide gape. latched optimally to the [right] breast in [cradle] position. Education given to the mother of how to visualize the suckling (with good rocking jaw motion) swallows (dropping of the lower jaw) and how to listen for drinking at the breast (the ka sound). The infant was [able] to maintain latch without discomfort to mother. Nipple care reviewed with optimal latch, good positioning and using clean hands when touching her breast. Resources used to facilitate learning were used from the [visual handouts/ tool/mom and baby guide]. Mother voiced understanding of the education shared, to call for assistance if the infant does not latch or if there is discomfort with . Reported to the Primary RN.
[2024-12-09] MEDS: IBUPROFEN 600 MG TABLET PO ×2 (04:25→12:22)
[2024-12-09 05:00] VITALS: BP 100/76; PULSE 93; RESP 16; TEMP 36.7; O2SAT 99
[2024-12-09 05:15] LABS: Hematocrit 36.4 % (37.0-47.0); Hemoglobin 11.8 g/dL (12.0-15.0)
--- NOTE | 2024-12-09 08:23 | PC.NURSE ---
Consulted with mother concerning needs and she shared her ability to independently latch infant optimally without pain. Mother is feeding appropriately for growth of and understands stimulating to eat if needed. Infant has had appropriate feedings in the last 24 hours meets the outcomes for weight, output, blood sugar and jaundice at this time. Reinforced understanding of milk production, transition of milk, signs of adequate intake, transition of stool, prevention/relief of engorgement, plugged ducts, mastitis, responsive watching for feeding cues, the different methods of stimulating to breastfeed 1-3 hours after the start of the last feeding, community resources, and when to call a provider using the resource of the feeding sheet along with the mom and baby guide. Mother voiced understanding of the information shared, is confident to continue effectively her infant at home, when to call for assistance, denies any additional assistance or education at this time. Reported to the Primary RN.
[2024-12-09 08:50] VITALS: BP 108/67; PULSE 83; RESP 16; TEMP 36.6; O2SAT 98
[2024-12-09] MEDS: MULTIVIT/MIN/PREN/FOL AC/IRON TABLET 1 TAB PO (09:30)
--- NOTE | 2024-12-09 09:38 | P.PNOB_ITS ---
OB - PN: Subj Subjective Date/time seen: 12/09/24 09:38 Narrative: Pain OK. Would like to go home. OB - PN: Obj Data Labs 12/09/24 04:15 Labs: Laboratory Results - last 24 hr 12/09/24 04:15 Hgb 11.8 L Hct 36.4 L OB - PN A/P Plan day: 1 Comments: A: PPD#1, doing well. P: Home to f/u 6 weeks. Exam 2 Psych: Other: AVSS ABD soft, nontender, fundus firm EXT nontender
--- NOTE | 2024-12-09 17:46 | PM.OBDSVD ---
DS: Admitting Diagnosis Discharge Date 12/09/24 Admitting Diagnosis IUP at term Labor DS: Discharge Diagnosis Discharge Diagnosis (1) (normal spontaneous vaginal delivery): Code(s): O80 - Encounter for full-term uncomplicated delivery Status: Acute OB - DS: Summary OB Procedures : None OB Procedures Intrapartum: Spontaneous Vag Delivery OB Procedures: : None Peripartum Data Laceration Description: Perineal - 2nd Degree Episiotomy description: None Time Spent with Patient Time attestation: Total time spent providing and/or coordinating discharge services: DS: Data Data Completed and Pending Labs on day of discharge: Labs from last 24 hours 12/09/24 04:15 Hgb 11.8 L Hct 36.4 L Discharge Plan Discharge Attending physician on discharge: Tyree Kelsey Discharging Clinician: Tyree Kelsey Anticipated Discharge Date/Time: 12/09/24 11:08 Patient Disposition: Home Activity: pelvic rest Diet: regular Discharge Instructions: Education: Mom and Baby Guide Given to: Mother Follow-Up: Call your delivering provider's office for an appointment to be seen in: 6 Weeks Mom and baby should come to the [facility] for the follow-up appointment. Appointment Date/Time: December 10, 2024 at 9:00 am What to expect at your follow-up visit: Blood Pressure Check Physical Assessment Call [phone] if you are unable to keep your appointment time. BREAST CARE: * Wear a snug supportive bra. * For engorgement discomfort: Breast Feeding: * Apply warm moist washcloths * Express milk as needed to relieve engorgement * Wear loose clothing Bottle Feeding: * May apply ice packs * For sore nipples: * Identify correct latch-on * Apply warm moist washcloths before and after nursing * Air dry nipples after nursing * May apply Lansinoh cream to nipples PERINEAL CARE: * Until bleeding stops, use your kang bottle after urinating * Change your pad frequently throughout the day * You may take sitz baths several times a day (fill your bathtub with warm water and soak for 20 minutes.) Do NOT bathe in the water * No tub baths until seen by your physician - You may shower ACTIVITY: * Rest as much as possible. * Do not exercise or lift anything heavier than your baby (such as laundry or other children.) * Avoid stairs or driving as much as possible. * Do not put anything into the vagina. No douching, tampons, or sexual activity until seen by physician. NOTIFY PHYSICIAN IF YOU HAVE ANY QUESTIONS OR IF ANY OF THE FOLLOWING SYMPTOMS OCCUR: * If your perineum becomes red, swollen, or more painful than what you have experienced in the hospital. * If your vaginal bleeding becomes foul smelling. * If your vaginal bleeding becomes more heavy than a period or if your bleeding changes from pink to bright red. However, you may pass an occasional walnut-sized clot once or twice for the first week . * If you experience a sharp, shooting pain in you calves. * If you discover a hard, reddened area on your breast or if you experience flu-like symptoms. DIET: * Eat regular, well-balanced meals. * Drink plenty of fluids daily. If , drink to thirst. Call or return if temperature above 100.4? F, increased abdominal pain, increased vaginal bleeding or any new problems. Patient Language: Indonesian Stand Alone Forms: General Discharge Information Follow-up/Referrals: Tyree Kelsey MD [Physician, [facility] OPERATOR] - 6 Weeks Discharge Medications: New ibuprofen 600 mg tablet 600 mg PO Q6H PRN (Reason: cramps) Qty: 30 0RF Continued omega 2-pmj-kuy-fish oil [Fish Oil] 60-90-500 mg capsule 1 cap PO DAILY Classic 28 mg iron- 800 mcg Tablet 1 tablet PO DAILY Date of admission: 12/08/24 00:42 Primary Care Provider: LettyStephanie Admitting Provider: Tyree Kelsey Attending physician on admission: Tyree Kelsey Condition: Stable
[2024-12-10 09:20] VITALS: BP 108/72; PULSE 80; RESP 18; TEMP 36.6; O2SAT 99
== END 2024-12-09 12:37 | disposition home or self-care (01) | DRG 807 ==
LOC: ANHLDR 01:00 → ANHOB2 03:57
PROVIDERS: Admitting Provider Obstetrics & Gynecology; PCP Family Medicine; Visit Provider Obstetrics & Gynecology
DX: O70.1 Second degree perineal laceration during delivery (principal); Z37.0 Single live birth; Z3A.39 39 weeks gestation of pregnancy
CPT/HCPCS: 36415; 85014; 85018; 85025; 85055; 86593; 86850; 86880; 86900; 86901; A9270; J2590